=== PATIENT | male | born 1950 | race African-American/Black ===

== ENCOUNTER 2021-11-15 09:05 | Inpatient (IN) ==
[2021-11-15] MEDS ORDERED: SODIUM CHLORIDE 0.9% 1,000 ML IV STA (10:01)
[2021-11-15 10:09] LABS: Basophils % 0.1 % (0.0-0.8); Eosinophils % 0.2 % (0.00-10.9); Hematocrit 44.3 VOL% (42.0-52.0); Hemoglobin 13.7 GM/DL (14.0-18.0); Immature Granulocytes % 0.8 %; Immature Granulocytes Absolute 0.17 #; Lymphocytes % 9.4 % (21.2-54.2); Mean Corpuscular HGB Conc 30.9 GM/DL (32-36); Mean Corpuscular Volume 91.9 FL (87-102); Mean Platelet Volume 10.5 FL (9.6-12.0); Monocytes % 9.7 % (1.7-12.7); Neutrophils % 79.8 % (38.7-73.9); Platelet Count 283 T/CUMM (130-400); Red Blood Count 4.82 MC/CUMM (3.8-5.5); White Blood Count 21.1 T/CUMM (4-12)
[2021-11-15 10:26] LABS: INR 1.1; PT Patient Result 11.9 SECS (10.5-12.0)
[2021-11-15 10:28] LABS: Band Neutrophils 1 % (0-10); Lymphocytes 6 % (20-55); Platelet Estimate Adequate; Segmented Neutrophils 88 % (50-85); Total Cells Counted 100
[2021-11-15 10:41] LABS: Alanine Aminotransferase 34 U/L (16-61); Albumin 2.3 G/DL (3.4-5.0); Alkaline Phosphatase 80 U/L (45-117); Aspartate Amino Transferase 31 U/L (0-37); Blood Urea Nitrogen 16 MG/DL (7-18); Calcium 8.3 MG/DL (8.5-10.1); Carbon Dioxide 22 MMOL/L (21-32); Estimated Glom Filtration Rate 72 ML/MIN; Glucose 185 MG/DL (74-106); Osmolality,Calculated 288.1 MOS/KG (273-304); Potassium 4.2 MMOL/L (3.5-5.1); Sodium 142 MMOL/L (136-145); Total Protein 6.1 G/DL (6.4-8.2)
[2021-11-15] MEDS ORDERED: hydrALAZINE 20 MG/1 ML VIAL IV STA (10:44)
[2021-11-15 12:49] LABS: Bacteria,Urine Occasional /HPF (Few); Mucus,Urine Occasional /LPF (Occasional); RBC,Urine 2 /HPF (0-4); Urine Appearance Clear (Clear); Urine Color Yellow (Yellow); Urine pH 5.5 (4.5-8.0)
[2021-11-15 12:50] LABS: Bilirubin,Urine Negative (Negative); Blood, Urine Trace mg/dL (Negative); Glucose,Urine (UA) Negative (Negative); Ketones,Urine Negative (Negative); Nitrite,Urine Negative (Negative); Protein,Urine 1+ MG/DL; Urine Specific Gravity 1.015 (1.001-1.035); Urine Urobilinogen 0.2 EU/DL (<2.0)
[2021-11-15] MEDS ORDERED: PIPERACILLIN/TAZOBACTAM 3,375 MG in SODIUM CHLORIDE 0.9% 100 ML IV STA (13:38)
[2021-11-15] MEDS ORDERED: ENOXAPARIN 30 MG/0.3 ML SYRINGE SUBCUT STA (13:40)
[2021-11-15] MEDS ORDERED: SODIUM CHLORIDE 0.9% 1,700 ML IV STA (13:40)
[2021-11-15] MEDS ORDERED: LEVOTHYROXINE 50 MCG TABLET ONE (14:38)
[2021-11-15] MEDS ORDERED: GLUCAGON 1 MG VIAL IM PRN (14:49)
[2021-11-15] MEDS ORDERED: ONDANSETRON 4 MG/2 ML VIAL IV PRN (14:58)
[2021-11-15] MEDS ORDERED: ALBUTEROL 2.5 MG/3 ML NEB RESP TX PRN (14:58)
[2021-11-15] MEDS ORDERED: MAGNESIUM SULF RIDER 4 GM/100 ML PREMIX IV PRN (15:01)
[2021-11-15] MEDS ORDERED: MAGNESIUM SULF RIDER 2 GM/50 ML PREMIX IV PRN (15:01)
[2021-11-15] MEDS ORDERED: DEXTROSE 10% 250 ML BAG IV PRN (15:06)
[2021-11-15 15:58] LABS: ABG HCO3 23.5 MMOL/L (20-26); ABG Oxygen Saturation 96.1 % (95-100); ABG PCO2 26.9 MM HG (35-48); ABG PH 7.492 (7.35-7.45); ABG PO2 79.6 MM HG (80-95); ABG TCO2 17.2 MMOL/L (23-27); Allen Test Positive; Pt O2 Delivery Device Room Air
[2021-11-15] MEDS: LACTATED RINGERS 1,000 ML IV SCH ×2 (16:59→23:25)
[2021-11-15] MEDS: DEXAMETHASONE 4 MG TABLET PO SCH (17:40)
[2021-11-15] MEDS ORDERED: VANCOMYCIN INJ 1,500 MG in SODIUM CHLORIDE 0.9% 500 ML IV SCH (18:00)
[2021-11-15] MEDS: TIMOLOL 0.5% OPH SOLN 5 ML BOTTLE BOTH EYES SCH (21:11)
[2021-11-15] MEDS: ACETAMINOPHEN 325 MG TABLET PO PRN (21:12)
[2021-11-15] MEDS: PIPERACILLIN/TAZOBACTAM 3,375 MG in SODIUM CHLORIDE 0.9% 100 ML IV SCH (23:25)
[2021-11-16 01:10] LABS: Basophils % 0.1 % (0.0-0.8); Hematocrit 44.5 VOL% (42.0-52.0); Hemoglobin 13.8 GM/DL (14.0-18.0); Immature Granulocytes % 0.9 %; Lymphocytes # 0.4 10*3/uL (1.4-4.0); Lymphocytes % 1.7 % (21.2-54.2); Mean Corpuscular Volume 92.1 FL (87-102); Monocytes % 4.9 % (1.7-12.7); Neutrophils % 92.4 % (38.7-73.9); Platelet Count 261 T/CUMM (130-400); Red Blood Count 4.83 MC/CUMM (3.8-5.5); Red Cell Distribution Width 15.9 % (9.3-17.3); White Blood Count 22.6 T/CUMM (4-12)
[2021-11-16] MEDS: hydrALAZINE 20 MG/1 ML VIAL IV PRN (01:31)
[2021-11-16 01:33] LABS: Calcium 8.2 MG/DL (8.5-10.1); Osmolality,Calculated 289.1 MOS/KG (273-304); Potassium 4.1 MMOL/L (3.5-5.1); Risk Ratio 3.48
[2021-11-16 01:45] LABS: Free T4 (Free Thyroxine) 1.45 NG/DL (0.76-1.46); Thyroid Stimulating Hormone 1.3 uIU/ml (0.358-3.74)
[2021-11-16 01:49] LABS: Lymphocytes 1 % (20-55); Platelet Estimate Adequate; Segmented Neutrophils 95 % (50-85); Total Cells Counted 100
[2021-11-16 02:49] LABS: Folate 16.51 NG/ML (5.38-24.0); Vitamin B12 707 PG/ML (211-911)
[2021-11-16] MEDS: PIPERACILLIN/TAZOBACTAM 3,375 MG in SODIUM CHLORIDE 0.9% 100 ML IV SCH (05:39)
[2021-11-16] MEDS: LEVOTHYROXINE 100 MCG TABLET PO SCH (05:52)
[2021-11-16] MEDS ORDERED: hydrALAZINE 10 MG TABLET PO SCH (09:00)
[2021-11-16] MEDS: DEXAMETHASONE 4 MG TABLET PO SCH (09:26)
[2021-11-16] MEDS: cefTRIAXone 1,000 MG in SODIUM CHLORIDE 0.9% 100 ML IV SCH (13:29)
[2021-11-16] MEDS: metroNIDAZOLE INJ 500 MG/100 ML PREMIX IV SCH ×2 (13:30→19:16)
[2021-11-16] MEDS: TIMOLOL 0.5% OPH SOLN 5 ML BOTTLE BOTH EYES SCH ×2 (13:33→21:26)
[2021-11-16] MEDS: LACTATED RINGERS 1,000 ML IV SCH ×3 (13:33→19:40)
[2021-11-16] MEDS: hydrALAZINE 25 MG TABLET PO SCH ×2 (16:20→21:26)
[2021-11-16] MEDS: ENOXAPARIN 40 MG/0.4 ML SYRINGE SUBCUT SCH (16:20)
[2021-11-17] MEDS: metroNIDAZOLE INJ 500 MG/100 ML PREMIX IV SCH ×3 (03:22→18:08)
[2021-11-17] MEDS: LACTATED RINGERS 1,000 ML IV SCH ×3 (04:38→19:15)
[2021-11-17 04:39] LABS: Basophils % 0.1 % (0.0-0.8); Hemoglobin 12.1 GM/DL (14.0-18.0); Immature Granulocytes % 1.3 %; Immature Granulocytes Absolute 0.26 #; Lymphocytes # 0.5 10*3/uL (1.4-4.0); Lymphocytes % 2.3 % (21.2-54.2); Mean Corpuscular Volume 91.5 FL (87-102); Mean Platelet Volume 11.1 FL (9.6-12.0); Monocytes % 3.9 % (1.7-12.7); Neutrophils % 92.4 % (38.7-73.9); Platelet Count 266 T/CUMM (130-400); Red Blood Count 4.26 MC/CUMM (3.8-5.5); Red Cell Distribution Width 15.9 % (9.3-17.3); White Blood Count 19.7 T/CUMM (4-12)
[2021-11-17 04:58] LABS: Lymphocytes 1 % (20-55); Segmented Neutrophils 94 % (50-85); Total Cells Counted 100
[2021-11-17 04:59] LABS: Hypochromia Slight; Microcytosis Slight; Platelet Estimate Adequate
[2021-11-17 05:00] LABS: Calcium 8.7 MG/DL (8.5-10.1); Osmolality,Calculated 286.5 MOS/KG (273-304); Potassium 3.6 MMOL/L (3.5-5.1)
[2021-11-17] MEDS: LEVOTHYROXINE 100 MCG TABLET PO SCH (05:58)
[2021-11-17] MEDS: hydrALAZINE 25 MG TABLET PO SCH (09:14)
[2021-11-17] MEDS: TIMOLOL 0.5% OPH SOLN 5 ML BOTTLE BOTH EYES SCH ×2 (09:14→20:21)
[2021-11-17] MEDS: cefTRIAXone 1,000 MG in SODIUM CHLORIDE 0.9% 100 ML IV SCH (11:39)
[2021-11-17] MEDS: ENOXAPARIN 40 MG/0.4 ML SYRINGE SUBCUT SCH (13:19)
[2021-11-18] MEDS: metroNIDAZOLE INJ 500 MG/100 ML PREMIX IV SCH ×3 (03:21→18:52)
[2021-11-18] MEDS: LACTATED RINGERS 1,000 ML IV SCH ×4 (05:24→23:24)
[2021-11-18] MEDS: LEVOTHYROXINE 100 MCG TABLET PO SCH (05:42)
[2021-11-18 06:34] LABS: Basophils % 0.1 % (0.0-0.8); Hematocrit 37.5 VOL% (42.0-52.0); Hemoglobin 11.7 GM/DL (14.0-18.0); Immature Granulocytes % 0.6 %; Immature Granulocytes Absolute 0.09 #; Lymphocytes # 1.2 10*3/uL (1.4-4.0); Lymphocytes % 8.7 % (21.2-54.2); Mean Corpuscular HGB Conc 31.2 GM/DL (32-36); Mean Corpuscular Volume 90.4 FL (87-102); Monocytes % 2.7 % (1.7-12.7); Neutrophils % 87.9 % (38.7-73.9); Platelet Count 270 T/CUMM (130-400); Red Blood Count 4.15 MC/CUMM (3.8-5.5); Red Cell Distribution Width 15.8 % (9.3-17.3)
[2021-11-18 06:49] LABS: Calcium 8.7 MG/DL (8.5-10.1); Osmolality,Calculated 287.4 MOS/KG (273-304); Potassium 3.5 MMOL/L (3.5-5.1)
[2021-11-18] MEDS: TIMOLOL 0.5% OPH SOLN 5 ML BOTTLE BOTH EYES SCH ×2 (08:14→20:48)
[2021-11-18] MEDS: cefTRIAXone 1,000 MG in SODIUM CHLORIDE 0.9% 100 ML IV SCH (10:04)
[2021-11-18] MEDS: ENOXAPARIN 40 MG/0.4 ML SYRINGE SUBCUT SCH (15:06)
[2021-11-18] MEDS: hydrALAZINE 20 MG/1 ML VIAL IV PRN (16:33)
[2021-11-19] MEDS: hydrALAZINE 20 MG/1 ML VIAL IV PRN (01:33)
[2021-11-19] MEDS: metroNIDAZOLE INJ 500 MG/100 ML PREMIX IV SCH ×3 (03:08→18:18)
[2021-11-19] MEDS: ACETAMINOPHEN 325 MG TABLET PO PRN ×5 (03:13→20:54)
[2021-11-19 05:57] LABS: Eosinophils # 0.1 10*3/uL (0.0-0.87); Eosinophils % 0.8 % (0.00-10.9); Hematocrit 36.4 VOL% (42.0-52.0); Hemoglobin 11.5 GM/DL (14.0-18.0); Immature Granulocytes % 0.6 %; Immature Granulocytes Absolute 0.06 #; Mean Corpuscular HGB Conc 31.6 GM/DL (32-36); Mean Corpuscular Volume 90.1 FL (87-102); Monocytes % 9.3 % (1.7-12.7); Neutrophils % 80.3 % (38.7-73.9); Platelet Count 262 T/CUMM (130-400); Red Blood Count 4.04 MC/CUMM (3.8-5.5); Red Cell Distribution Width 15.5 % (9.3-17.3); White Blood Count 10.8 T/CUMM (4-12)
[2021-11-19 06:06] LABS: Calcium 8.4 MG/DL (8.5-10.1); Osmolality,Calculated 288.1 MOS/KG (273-304); Potassium 3.2 MMOL/L (3.5-5.1)
[2021-11-19] MEDS: LEVOTHYROXINE 100 MCG TABLET PO SCH (06:06)
[2021-11-19 06:30] LABS: Eosinophils 2 % (0-10); Lymphocytes 7 % (20-55); Platelet Estimate Normal; Segmented Neutrophils 78 % (50-85); Total Cells Counted 100
[2021-11-19] MEDS ORDERED: POTASSIUM CHLORIDE 20 MEQ TABLET PO ONE ×2 (07:22→10:00)
[2021-11-19] MEDS: LACTATED RINGERS 1,000 ML IV SCH (08:08)
[2021-11-19] MEDS: FUROSEMIDE 20 MG TABLET PO SCH (09:30)
[2021-11-19] MEDS: TIMOLOL 0.5% OPH SOLN 5 ML BOTTLE BOTH EYES SCH ×2 (09:30→20:51)
[2021-11-19] MEDS: cefTRIAXone 1,000 MG in SODIUM CHLORIDE 0.9% 100 ML IV SCH (09:30)
[2021-11-19] MEDS ORDERED: FUROSEMIDE 40 MG/4 ML VIAL IV ONE (10:46)
[2021-11-19] MEDS: ENOXAPARIN 40 MG/0.4 ML SYRINGE SUBCUT SCH (14:57)
[2021-11-20] MEDS: metroNIDAZOLE INJ 500 MG/100 ML PREMIX IV SCH ×3 (03:36→18:36)
[2021-11-20 05:23] LABS: Basophils % 0.2 % (0.0-0.8); Eosinophils # 0.1 10*3/uL (0.0-0.87); Eosinophils % 0.9 % (0.00-10.9); Hemoglobin 12.5 GM/DL (14.0-18.0); Immature Granulocytes % 0.6 %; Immature Granulocytes Absolute 0.09 #; Lymphocytes # 0.9 10*3/uL (1.4-4.0); Mean Corpuscular HGB Conc 31.3 GM/DL (32-36); Mean Corpuscular Volume 90.7 FL (87-102); Mean Platelet Volume 10.7 FL (9.6-12.0); Monocytes % 7.7 % (1.7-12.7); Neutrophils % 84.6 % (38.7-73.9); Platelet Count 308 T/CUMM (130-400); Red Blood Count 4.41 MC/CUMM (3.8-5.5); Red Cell Distribution Width 15.3 % (9.3-17.3); White Blood Count 15.3 T/CUMM (4-12)
[2021-11-20 05:49] LABS: Calcium 8.4 MG/DL (8.5-10.1); Osmolality,Calculated 282.4 MOS/KG (273-304); Potassium 3.6 MMOL/L (3.5-5.1)
[2021-11-20] MEDS: LEVOTHYROXINE 100 MCG TABLET PO SCH (06:33)
[2021-11-20] MEDS: cefTRIAXone 1,000 MG in SODIUM CHLORIDE 0.9% 100 ML IV SCH ×2 (09:04→09:59)
[2021-11-20] MEDS: TIMOLOL 0.5% OPH SOLN 5 ML BOTTLE BOTH EYES SCH ×2 (09:04→21:01)
[2021-11-20] MEDS: FUROSEMIDE 20 MG TABLET PO SCH (09:04)
[2021-11-20] MEDS: POLYETHYLENE GLYCOL POWDER 17 GM PACK PO SCH (10:32)
[2021-11-20] MEDS: DOCUSATE SODIUM 100 MG CAPSULE PO SCH ×2 (10:32→21:01)
[2021-11-20] MEDS: ACETAMINOPHEN 325 MG TABLET PO PRN (11:37)
[2021-11-20] MEDS: DEXAMETHASONE 4 MG TABLET PO SCH (11:37)
[2021-11-20] MEDS: ENOXAPARIN 40 MG/0.4 ML SYRINGE SUBCUT SCH (14:20)
[2021-11-21] MEDS: metroNIDAZOLE INJ 500 MG/100 ML PREMIX IV SCH ×3 (02:08→18:26)
[2021-11-21] MEDS: LEVOTHYROXINE 100 MCG TABLET PO SCH (05:59)
[2021-11-21 06:53] LABS: Basophils % 0.2 % (0.0-0.8); Eosinophils % 0.1 % (0.00-10.9); Hematocrit 38.8 VOL% (42.0-52.0); Hemoglobin 12.5 GM/DL (14.0-18.0); Immature Granulocytes % 1.5 %; Immature Granulocytes Absolute 0.33 #; Lymphocytes # 0.8 10*3/uL (1.4-4.0); Lymphocytes % 3.6 % (21.2-54.2); Mean Corpuscular HGB Conc 32.2 GM/DL (32-36); Mean Corpuscular Volume 89.4 FL (87-102); Mean Platelet Volume 11.1 FL (9.6-12.0); Monocytes % 4.3 % (1.7-12.7); Neutrophils % 90.3 % (38.7-73.9); Platelet Count 369 T/CUMM (130-400); Red Blood Count 4.34 MC/CUMM (3.8-5.5); Red Cell Distribution Width 15.2 % (9.3-17.3); White Blood Count 21.3 T/CUMM (4-12)
[2021-11-21 07:13] LABS: Hypochromia Slight; Lymphocytes 6 % (20-55); Microcytosis Slight; Platelet Estimate Adequate; Segmented Neutrophils 90 % (50-85); Total Cells Counted 100
[2021-11-21] MEDS: FUROSEMIDE 20 MG TABLET PO SCH (09:14)
[2021-11-21] MEDS: DEXAMETHASONE 4 MG TABLET PO SCH (09:16)
[2021-11-21] MEDS: DOCUSATE SODIUM 100 MG CAPSULE PO SCH ×2 (09:16→21:45)
[2021-11-21] MEDS: TIMOLOL 0.5% OPH SOLN 5 ML BOTTLE BOTH EYES SCH ×2 (09:17→21:45)
[2021-11-21] MEDS: POLYETHYLENE GLYCOL POWDER 17 GM PACK PO SCH (09:17)
[2021-11-21] MEDS: cefTRIAXone 1,000 MG in SODIUM CHLORIDE 0.9% 100 ML IV SCH (10:18)
[2021-11-21] MEDS: ENOXAPARIN 40 MG/0.4 ML SYRINGE SUBCUT SCH (14:50)
[2021-11-21 18:48] LABS: Cyclic Citrull Peptide Interp Positive
[2021-11-22] MEDS: metroNIDAZOLE INJ 500 MG/100 ML PREMIX IV SCH ×3 (03:41→21:41)
[2021-11-22] MEDS: LEVOTHYROXINE 100 MCG TABLET PO SCH (05:52)
[2021-11-22 06:09] LABS: Basophils % 0.1 % (0.0-0.8); Hematocrit 36.3 VOL% (42.0-52.0); Hemoglobin 11.9 GM/DL (14.0-18.0); Immature Granulocytes % 1.4 %; Immature Granulocytes Absolute 0.21 #; Lymphocytes # 0.9 10*3/uL (1.4-4.0); Lymphocytes % 5.8 % (21.2-54.2); Mean Corpuscular HGB Conc 32.8 GM/DL (32-36); Mean Corpuscular Volume 88.8 FL (87-102); Mean Platelet Volume 10.4 FL (9.6-12.0); Monocytes % 6.5 % (1.7-12.7); NRBC # 0.02 10*3/uL; Neutrophils % 86.2 % (38.7-73.9); Platelet Count 462 T/CUMM (130-400); Red Blood Count 4.09 MC/CUMM (3.8-5.5); White Blood Count 15.2 T/CUMM (4-12)
[2021-11-22 06:25] LABS: Calcium 8.4 MG/DL (8.5-10.1); Osmolality,Calculated 288.5 MOS/KG (273-304); Potassium 3.9 MMOL/L (3.5-5.1)
[2021-11-22] MEDS: DEXAMETHASONE 4 MG TABLET PO SCH (09:53)
[2021-11-22] MEDS: TIMOLOL 0.5% OPH SOLN 5 ML BOTTLE BOTH EYES SCH ×2 (09:53→21:33)
[2021-11-22] MEDS: FUROSEMIDE 20 MG TABLET PO SCH (09:53)
[2021-11-22] MEDS: cefTRIAXone 1,000 MG in SODIUM CHLORIDE 0.9% 100 ML IV SCH (09:54)
[2021-11-22] MEDS: POLYETHYLENE GLYCOL POWDER 17 GM PACK PO SCH (09:55)
[2021-11-22] MEDS: DOCUSATE SODIUM 100 MG CAPSULE PO SCH ×2 (09:55→21:31)
[2021-11-22] MEDS: ENOXAPARIN 40 MG/0.4 ML SYRINGE SUBCUT SCH (15:59)
[2021-11-22] MEDS: INSULIN LISPRO 100 UNIT/ML SUBCUT SCH ×2 (16:30→21:33)
[2021-11-23] MEDS: hydrALAZINE 20 MG/1 ML VIAL IV PRN (00:12)
[2021-11-23] MEDS: metroNIDAZOLE INJ 500 MG/100 ML PREMIX IV SCH (05:44)
[2021-11-23] MEDS: LEVOTHYROXINE 100 MCG TABLET PO SCH (05:44)
[2021-11-23 05:47] LABS: Basophils % 0.2 % (0.0-0.8); Hematocrit 37.7 VOL% (42.0-52.0); Hemoglobin 12.1 GM/DL (14.0-18.0); Immature Granulocytes % 1.2 %; Immature Granulocytes Absolute 0.14 #; Lymphocytes # 1.2 10*3/uL (1.4-4.0); Lymphocytes % 10.2 % (21.2-54.2); Mean Corpuscular HGB Conc 32.1 GM/DL (32-36); Mean Corpuscular Volume 89.8 FL (87-102); Mean Platelet Volume 10.3 FL (9.6-12.0); Monocytes % 7.9 % (1.7-12.7); NRBC # 0.02 10*3/uL; Neutrophils % 80.5 % (38.7-73.9); Platelet Count 501 T/CUMM (130-400); Red Cell Distribution Width 15.2 % (9.3-17.3); White Blood Count 12.1 T/CUMM (4-12)
[2021-11-23 06:07] LABS: Calcium 8.4 MG/DL (8.5-10.1); Osmolality,Calculated 288.4 MOS/KG (273-304); Potassium 3.6 MMOL/L (3.5-5.1)
[2021-11-23] MEDS: INSULIN LISPRO 100 UNIT/ML SUBCUT SCH ×2 (07:33→12:30)
[2021-11-23] MEDS: DEXAMETHASONE 4 MG TABLET PO SCH (09:54)
[2021-11-23] MEDS: FUROSEMIDE 20 MG TABLET PO SCH (09:54)
[2021-11-23] MEDS: TIMOLOL 0.5% OPH SOLN 5 ML BOTTLE BOTH EYES SCH (09:55)
[2021-11-23] MEDS: cefTRIAXone 1,000 MG in SODIUM CHLORIDE 0.9% 100 ML IV SCH (09:55)
[2021-11-23] MEDS: DOCUSATE SODIUM 100 MG CAPSULE PO SCH (10:06)
[2021-11-23] MEDS: POLYETHYLENE GLYCOL POWDER 17 GM PACK PO SCH (10:06)
[2021-11-23 12:31] VITALS: BP 174/96
[2021-11-23] MEDS: ENOXAPARIN 40 MG/0.4 ML SYRINGE SUBCUT SCH (17:31)
== END 2021-11-23 16:15 | disposition home health service (06) | DRG 871 ==
LOC: SUATTDRO → N.ED 09:05 → SUATTDRO 14:49 → N.EDINP 14:49 → N.3E 17:15
PROVIDERS: ADMIT Internal Medicine; ATTEND Internal Medicine